=== PATIENT | female | born 1995 | race Caucasian/White ===

== ENCOUNTER 2022-09-09 14:19 | Observation (INO) | payer OTHER ==
[~2022-09-09] VITALS: Ht 165.1 cm; Wt 103.4 kg
[2022-09-09 16:10] VITALS: BP 147/66
== END 2022-09-09 16:00 | disposition home or self-care (01) ==
LOC: MLD 14:19
PROVIDERS: ADMIT Obstetrics & Gynecology; ATTEND Obstetrics & Gynecology
DX: Z34.83 Encounter for supervision of other normal pregnancy, third trimester (principal); Z3A.34 34 weeks gestation of pregnancy
CPT/HCPCS: 59025; G0378

== ENCOUNTER 2022-10-07 16:35 | Observation (INO) | payer OTHER ==
[~2022-10-07] VITALS: Ht 165.1 cm; Wt 112.5 kg
[2022-10-07] MEDS ORDERED: PRETAB PO (17:28)
[2022-10-07 18:29] LABS: BASOPHILS % (AUTO) 0.3 % (0.0-2.0); EOSINOPHILS # (AUTO) 0.1 K/uL (0-0.4); EOSINOPHILS % (AUTO) 1.1 % (0.0-4.0); HEMATOCRIT 37.6 % (36-48); HEMOGLOBIN 12.7 g/dL (12.0-16.0); LYMPHOCYTES # (AUTO) 1.6 K/uL (2.5-16.5); LYMPHOCYTES % (AUTO) 17.1 % (20.5-51.1); MEAN CORPUSCULAR HEMOGLOBIN 28 pg (27-31); MEAN CORPUSCULAR HGB CONC 34 g/dL (33-37); MEAN CORPUSCULAR VOLUME 82.9 fL (80-94); MONOCYTES # (AUTO) 0.6 K/uL (0.8-1.0); MONOCYTES % (AUTO) 6.8 % (1.7-9.3); NEUTROPHILS # (AUTO) 6.9 K/uL (1.8-7.7); NEUTROPHILS % (AUTO) 74.7 % (42.2-75.2); PLATELET COUNT (AUTO) 250 K/uL (140-450); RED BLOOD CELL COUNT(AUTO) 4.53 MIL/uL (4.20-5.40); WHITE BLOOD COUNT (AUTO) 9.3 K/uL (4.8-10.8)
[2022-10-07 18:49] LABS: PROTHROMBIN TIME 9.5 secs (10.8-13.4)
[2022-10-07 19:03] VITALS: BP 142/67
[2022-10-07 19:10] LABS: ALBUMIN 3.2 g/dL (3.4-5.0); ANION GAP 13.4 (8-16); CARBON DIOXIDE 25.7 mmol/L (21-32); CREATININE 0.7 mg/dL (0.6-1.3); POTASSIUM 4.1 mmol/L (3.5-5.1); TOTAL BILIRUBIN 0.2 mg/dL (0.0-1.0)
[2022-10-07 20:07] LABS: APPEARANCE,URINE CLEAR (CLEAR); BILIRUBIN,URINE NEGATIVE (NEGATIVE); BLOOD, URINE NEGATIVE (NEGATIVE); COLOR,URINE STRAW (YELLOW); LEUKOCYTE ESTERASE ,URINE NEGATIVE (NEGATIVE); NITRITE, URINE NEGATIVE (NEGATIVE); PH,URINE 5.5 (5.0-9.0); UGLUCOSE NEGATIVE (NEGATIVE)
[2022-10-07 20:33] LABS: FIBRINOGEN > 500 mg/dL (200-400)
== END 2022-10-07 22:31 | disposition home or self-care (01) ==
LOC: MLD 16:35
PROVIDERS: ADMIT Obstetrics & Gynecology; ATTEND Obstetrics & Gynecology
DX: O10.913 Unspecified pre-existing hypertension complicating pregnancy, third trimester (principal); Z20.822 Contact with and (suspected) exposure to COVID-19; Z3A.32 32 weeks gestation of pregnancy
CPT/HCPCS: 36415; 80053; 81003; 82570; 84550; 85025; 85384; 85610; 85730; 87426; G0378

== ENCOUNTER 2022-10-24 18:11 | Inpatient (IN) | payer OTHER ==
[~2022-10-24] VITALS: Ht 165.1 cm; Wt 113.4 kg
[~2022-10-24 18:11] MED LIST: PRETAB PO
[2022-10-24] MEDS ORDERED: OXYTOCIN 10 UNITS/ML VIAL IM SCH (18:55)
[2022-10-24] MEDS ORDERED: CARBOPROST 250 MCG/ML AMP IM PRN (18:55)
[2022-10-24] MEDS ORDERED: LACTATED RINGERS 500 ML IV ONE (18:55)
[2022-10-24 19:13] LABS: BASOPHILS % (AUTO) 0.2 % (0.0-2.0); EOSINOPHILS # (AUTO) 0.1 K/uL (0-0.4); HEMATOCRIT 37.2 % (36-48); HEMOGLOBIN 12.3 g/dL (12.0-16.0); LYMPHOCYTES # (AUTO) 1.6 K/uL (2.5-16.5); LYMPHOCYTES % (AUTO) 15.2 % (20.5-51.1); MEAN CORPUSCULAR HEMOGLOBIN 28 pg (27-31); MEAN CORPUSCULAR HGB CONC 33 g/dL (33-37); MEAN CORPUSCULAR VOLUME 83.1 fL (80-94); MONOCYTES # (AUTO) 0.9 K/uL (0.8-1.0); MONOCYTES % (AUTO) 8.1 % (1.7-9.3); NEUTROPHILS % (AUTO) 75.5 % (42.2-75.2); PLATELET COUNT (AUTO) 228 K/uL (140-450); RED BLOOD CELL COUNT(AUTO) 4.48 MIL/uL (4.20-5.40); WHITE BLOOD COUNT (AUTO) 10.6 K/uL (4.8-10.8)
[2022-10-24] MEDS: LACTATED RINGERS 1,000 ML IV SCH (19:36)
[2022-10-24 19:39] LABS: APPEARANCE,URINE CLEAR (CLEAR); BILIRUBIN,URINE NEGATIVE (NEGATIVE); BLOOD, URINE NEGATIVE (NEGATIVE); LEUKOCYTE ESTERASE ,URINE TRACE (NEGATIVE); NITRITE, URINE NEGATIVE (NEGATIVE); UGLUCOSE NEGATIVE (NEGATIVE)
[2022-10-24 19:43] LABS: PROTHROMBIN TIME 9.2 secs (10.8-13.4)
[2022-10-24 19:45] LABS: ANION GAP 13.1 (8-16); CARBON DIOXIDE 23.8 mmol/L (21-32); CREATININE 0.7 mg/dL (0.6-1.3); POTASSIUM 3.9 mmol/L (3.5-5.1); TOTAL BILIRUBIN 0.2 mg/dL (0.0-1.0)
[2022-10-24 19:46] LABS: COLOR,URINE STRAW (YELLOW)
[2022-10-24 19:50] VITALS: BP 131/86
[2022-10-24] MEDS ORDERED: MORPHINE SULFATE 5 MG/ML VIAL IVP PRN (20:00)
[2022-10-24] MEDS ORDERED: ONDANSETRON 4 MG/2 ML VIAL IVP PRN (20:00)
[2022-10-24] MEDS ORDERED: OXYTOCIN 20 UNITS in LACTATED RINGERS 1,000 ML IV SCH (20:40)
[2022-10-24 21:01] LABS: RBC,URINE NONE SEEN /HPF (0-5)
[2022-10-24] MEDS ORDERED: OXYTOCIN 20 UNITS/LR PREMIX 1,000 ML IV ONE (22:08)
[2022-10-25] MEDS ORDERED: MISOPROSTOL 25 MCG TAB VG SCH
[2022-10-25] MEDS: LACTATED RINGERS 1,000 ML IV SCH (03:46)
[2022-10-25] MEDS ORDERED: MORPHINE SULFATE 10 MG/ML VIAL ONE (07:28)
[2022-10-25] MEDS ORDERED: METHYLERGONOVINE 0.2 MG/ML AMP IM PRN (10:40)
[2022-10-25] MEDS ORDERED: MEASLES, MUMPS, AND RUBELLA 1 VIAL SQVAC ONE (10:40)
[2022-10-25] MEDS ORDERED: OXYTOCIN 10 UNITS/ML VIAL IM PRN (10:40)
[2022-10-25] MEDS ORDERED: BENZOCAINE/MENTHOL 20%-0.5% 60 GM CAN TP PRN (10:40)
[2022-10-25] MEDS ORDERED: IBUPROFEN 800 MG TAB PO PRN (10:40)
[2022-10-25] MEDS ORDERED: METHYLERGONOVINE 0.2 MG TAB PO PRN (10:40)
[2022-10-26 06:17] LABS: HEMOGLOBIN 11.6 g/dL (12.0-16.0)
--- NOTE | 2022-10-26 10:43 | NUR ---
PATIENT HAS BEEN SCREENED AND CATEGORIZED LOW NUTRITION RISK. PATIENT WILL BE SEEN WITHIN 7 DAYS OF ADMISSION. 10/24/22-10/31/[address]
== END 2022-10-26 16:20 | disposition home or self-care (01) | DRG 560 ==
LOC: MLD 18:11 → MFCC 10-25 10:40
PROVIDERS: ADMIT Obstetrics & Gynecology; ATTEND Obstetrics & Gynecology
PROC: 10E0XZZ Delivery of Products of Conception, External Approach (ICD-10-PCS; principal; 2022-10-25)
DX: O48.0 Post-term pregnancy (principal); Z37.0 Single live birth; O41.03X0 Oligohydramnios, third trimester, not applicable or unspecified; Z3A.41 41 weeks gestation of pregnancy; Z20.822 Contact with and (suspected) exposure to COVID-19
CPT/HCPCS: 36415; 59409; 80053; 81001; 85018; 85025; 85610; 85730; 86592; 86886; 86900; 86901; 87086; 90715; J2270; J2405; J2590; J7120